=== PATIENT | female | born 1995 | race African-American/Black ===

== ENCOUNTER 2017-05-03 22:58 | Emergency (ER) | payer OTHER, MEDICAID ==
[~2017-05-03] VITALS: Ht 160 cm; Wt 54.5 kg
[2017-05-04] MEDS ORDERED: KETOROLAC 60MG/2ML VIAL IM ONE (03:15)
[2017-05-04 05:57] VITALS: BP 118/79
== END 2017-05-04 06:01 | disposition home or self-care (01) ==
LOC: ER 22:58
DX: S02.2XXA Fracture of nasal bones, initial encounter for closed fracture (principal); S09.8XXA Other specified injuries of head, initial encounter; J45.909 Unspecified asthma, uncomplicated; Y04.0XXA Assault by unarmed brawl or fight, initial encounter; Y93.89 Activity, other specified; Y92.89 Other specified places as the place of occurrence of the external cause
CPT/HCPCS: 70486; 96372; 99284; J1885